=== PATIENT | female | born 1990 | race Caucasian/White ===

== ENCOUNTER 2016-06-25 12:52 | Emergency (ER) | payer OTHER, MEDICAID | END 2016-06-25 17:38 | disposition home or self-care (01) | DX: M79.604 Pain in right leg (principal); Z98.890 Other specified postprocedural states; M79.7 Fibromyalgia ==

== ENCOUNTER 2016-11-02 16:25 | Emergency (ER) | payer MEDICAID ==
--- NOTE | 2016-11-02 16:36 | ED Physician Documentation ---
PD HPI URI - Stated complaint Stated Complaint: SOA - Chief complaint Chief Complaint: Resp - History obtained from History obtained from: Patient - History of Present Illness Timing - onset: How many weeks ago (2) Timing duration: Weeks (she has had cough for 2 weeks, originally URI and cough and then to cough and was improving quite a bit, but now with marked cough productive of sputum, feverish, and also having 2 days of right lower thoracic pain in band around from back to lower ribs without rash nor sores, but does have marked tenderness with cough, touch (even my shirt rubbing hurts there).) Timing details: Gradual onset, Still present Associated symptoms: Fever, Chills, Productive cough, Chest pain, Dyspnea. No: NVD, Bilateral edema Contributing factors: No: Sick contact, Travel, Immunocompromised Similar symptoms before: Has not had sx before Recently seen: Not recently seen Review of Systems Constitutional: reports: Fever (subjective last night), Chills, Myalgias Nose: denies: Rhinorrhea / runny nose, Congestion Throat: denies: Sore throat Cardiac: reports: Chest pain / pressure (right lower ribs in band around to spine/back) Respiratory: reports: Dyspnea, Cough GI: denies: Nausea, Vomiting, Diarrhea Skin: denies: Rash, Lesions Neurologic: denies: Focal weakness, Numbness PD PAST MEDICAL HISTORY - Past Medical History Past Medical History: No Cardiovascular: Murmur Respiratory: None Neuro: None Endocrine/Autoimmune: None GI: None FAMILY AND CONSUMER SCIENCES TEACHER: None, Miscarriage(s) : None HEENT: None Psych: None Musculoskeletal: Fibromyalgia Derm: None - Past Surgical History Past Surgical History: Yes Derm: Skin cancer surgery - Present Medications Home Medications: Ambulatory Orders Medication Instructions Recorded Confirmed Albuterol Sulfate [Proair Hfa 2 puffs IH QID #1 hfa.aer.ad 11/02/16 Inhaler] Amoxicillin 500 mg PO TID #20 capsule 11/02/16 Cetirizine [ZyrTEC] 10 mg PO ONCE 11/02/16 11/02/16 Dexamethasone [Decadron] 4 mg PO DAILY #5 tablet 11/02/16 Hydrocodone/Acetaminophen [[place] 1 each PO Q6H PRN #20 tablet 11/02/16 5-325 Tablet] Naproxen 375 mg PO BID #20 tablet 11/02/16 Valacyclovir HCl [Valtrex] 1,000 mg PO TID #15 tablet 11/02/16 guaiFENesin [Mucinex] 600 mg PO BID 11/02/16 11/02/16 - Allergies Allergies/Adverse Reactions: Allergies Allergy/AdvReac Type Severity Reaction Status Date / Time adhesive Allergy Hives Verified 11/02/16 16:32 latex Allergy Hives Verified 11/02/16 16:32 - Social History Does the pt smoke?: No Smoking Status: Never smoker Does the pt drink ETOH?: No Does the pt have substance abuse?: No - Immunizations Immunizations are current?: Yes Immunizations: TDAP >10years/unknown - POLST Patient has POLST: No PD ED PE NORMAL - Vitals Vital signs reviewed: Yes - General General: Alert and oriented X 3, Well developed/nourished, Other (appears in pain with deep breathing and cough, and with movement for right lower chestwall. Intermittent cough with congested sounds and sputum. ) - HEENT HEENT: Pharynx benign - Neck Neck: Supple, no meningeal sign, No adenopathy - Cardiac Cardiac: RRR, No murmur - Respiratory Respiratory: Clear bilaterally, Other (chest wall tender to light touch and palpation from around back about T6-7 area laterally in band around to lower ribs area. Abdomen not tender. No rash nor sores. ) - Abdomen Abdomen: Soft, Non tender Results - Vitals Vitals: Vital Signs - 24 hr 11/02/16 11/02/16 16:29 17:59 Temperature 37.0 C Heart Rate 73 77 Respiratory 20 18 Rate Blood Pressure 139/91 H 129/82 H O2 Saturation 98 98 Oxygen O2 Source Room air - Rads (name of study) chest Radiology: Prelim report reviewed (no infiltrates), EMP read contemporaneously ( normal) PD MEDICAL DECISION MAKING - ED course Complexity details: reviewed results, considered differential (extended course of cough, was improving and now with purulent sputum, fevers - seems potential bacterial trasnformation. She also had considerable pain right lower thoracic area in band from spine around to front lower ribs area, with marked sensitivity to touch of skin. No rash nor sores. However, sounds like early shingles as well. Discussed this with her. ), d/w patient Departure - Departure Disposition: 01 Home, Self Care Clinical Impression: Acute chest wall pain Bronchitis, acute Qualifiers: Bronchitis organism: unspecified organism Qualified Code(s): J20.9 - Acute bronchitis, unspecified Condition: Stable Record reviewed to determine appropriate education?: Yes Instructions: ED Upper Resp Infec Abx Tx, ED Chest Pain Atypical Unkn Cause Follow-Up: Oh,ARMEN Stapleton [Primary Care Provider] - Prescriptions: Amoxicillin 500 mg PO TID #20 capsule Dexamethasone [Decadron] 4 mg PO DAILY #5 tablet Naproxen 375 mg PO BID #20 tablet Hydrocodone/Acetaminophen [Ismay 5-325 Tablet] 1 each PO Q6H PRN #20 tablet PRN Reason: Pain Albuterol Sulfate [Proair Hfa Inhaler] 2 puffs IH QID #1 hfa.aer.ad Valacyclovir HCl [Valtrex] 1,000 mg PO TID #15 tablet Comments: Drink lots of fluids. Naproxen twice daily for pain and add hydrocodone for pain as needed (can help with cough as well). Albuterol inhaler 2 puffs 4 times daily to help with cough and breathing. Amoxicillin as directed for the bronchitis. If you develop some rash to the right chest/back, then start the valacyclovir as it has the feeling that it might be early shingles. Recheck with PMD if not improved over the next few days. Forms: Activity restrictions Discharge Date/Time: 11/02/16 18:10
[2016-11-02] MEDS ORDERED: ACETAMINOPHEN 325 MG TABLET PO STA (16:53)
[2016-11-02] MEDS ORDERED: DEXAMETHASONE 10 MG/ML VIAL PO STA (16:53)
[2016-11-02] MEDS ORDERED: BENZONATATE 100 MG CAPSULE PO STA (16:53)
[2016-11-02] MEDS ORDERED: BENZONATATE 100 MG CAPSULE PO ONE (16:55)
[2016-11-02] MEDS ORDERED: ACETAMINOPHEN 325 MG TABLET PO ONE (16:55)
[2016-11-02] MEDS ORDERED: DEXAMETHASONE 10 MG/ML VIAL ONE (16:55)
--- NOTE | 2016-11-02 17:22 | XRAY Preliminary Report ---
Exam: XR Chest 2 View PA/LAT IMPRESSION: Negative chest. [facility] SITE ID: [id number]
--- NOTE | 2016-11-02 17:25 | XRAY Report ---
EXAM: CHEST RADIOGRAPHY EXAM DATE: 11/02/2016 05:08 PM. CLINICAL HISTORY: Cough for 2 weeks; right chest pain. COMPARISON: None. TECHNIQUE: 2 views. FINDINGS: Lungs/Pleura: No focal opacities evident. No pleural effusion. No pneumothorax. Normal volumes. Mediastinum: Heart and mediastinal contours are unremarkable. Other: None. IMPRESSION: Negative chest. [facility] Referring Provider Line: [phone] SITE ID: [id number]
[2016-11-02 18:00] VITALS: BP 129/82
== END 2016-11-02 18:10 | disposition home or self-care (01) ==
LOC: ED 16:25
DX: J20.9 Acute bronchitis, unspecified (principal); R07.89 Other chest pain; R06.00 Dyspnea, unspecified
CPT/HCPCS: 71020; 99283; A9270

== ENCOUNTER 2017-03-14 08:37 | Emergency (ER) | payer MEDICAID ==
[2017-03-14] MEDS ORDERED: SODIUM CHLORIDE 0.9% 1,000 ML IV ONE (09:13)
--- NOTE | 2017-03-14 09:15 | ED Physician Documentation ---
History of Present Illness - Stated complaint Stated Complaint: FEMALE - Chief complaint Chief Complaint: General - Additonal information Additional information: hx from pt to ER with brown urine and dysuria kindey pain also thinks she is dehydrated - she is drinking plenty but not urinating much and she feels weak no fever chill cough soa vomiting clear liquid no BM no bloody BM LMP 1 wk ago, no vag dc, denies any chance STD Review of Systems Constitutional: denies: Fever, Chills Cardiac: denies: Chest pain / pressure Respiratory: denies: Dyspnea, Cough GI: reports: Nausea. denies: Abdominal Pain, Diarrhea, Hematemesis, Bloody / black stool : reports: Dysuria, LMP (1 wk ago). denies: Discharge, Now EGA Musculoskeletal: reports: Back pain Immunocompromised: denies: Immunocompromised PD PAST MEDICAL HISTORY - Past Medical History Past Medical History: Yes Cardiovascular: Murmur Respiratory: None Neuro: None Endocrine/Autoimmune: None GI: None ORGANISATIONAL PSYCHOLOGIST: Miscarriage(s) : None HEENT: None Psych: None Musculoskeletal: Fibromyalgia Derm: None - Past Surgical History Past Surgical History: No Derm: Skin cancer surgery - Present Medications Home Medications: Ambulatory Orders Medication Instructions Recorded Confirmed Albuterol Sulfate [Proair Hfa 2 puffs IH QID #1 hfa.aer.ad 11/02/16 Inhaler] Amoxicillin 500 mg PO TID #20 capsule 11/02/16 Cetirizine [ZyrTEC] 10 mg PO ONCE 11/02/16 11/02/16 Dexamethasone [Decadron] 4 mg PO DAILY #5 tablet 11/02/16 Hydrocodone/Acetaminophen [[place] 1 each PO Q6H PRN #20 tablet 11/02/16 5-325 Tablet] Naproxen 375 mg PO BID #20 tablet 11/02/16 Valacyclovir HCl [Valtrex] 1,000 mg PO TID #15 tablet 11/02/16 guaiFENesin [Mucinex] 600 mg PO BID 11/02/16 11/02/16 Cephalexin [Keflex] 500 mg PO Q6H #28 capsule 03/14/17 Phenazopyridine [Pyridium] 100 mg PO Q8H PRN #9 tablet 03/14/17 - Allergies Allergies/Adverse Reactions: Allergies Allergy/AdvReac Type Severity Reaction Status Date / Time adhesive Allergy Hives Verified 11/02/16 16:32 latex Allergy Hives Verified 11/02/16 16:32 - Social History Does the pt smoke?: No Smoking Status: Never smoker Does the pt drink ETOH?: Yes Does the pt have substance abuse?: No - Immunizations Immunizations are current?: No Immunizations: TDAP >10years/unknown - POLST Patient has POLST: No PD ED PE NORMAL - Vitals Vital signs reviewed: Yes - General General: Alert and oriented X 3 - HEENT HEENT: PERRL - Neck Neck: Supple, no meningeal sign - Cardiac Cardiac: RRR - Respiratory Respiratory: No respiratory distress, Clear bilaterally - Abdomen Abdomen: Soft, Non tender - Back Back: No CVA TTP - Derm Derm: Normal color - Neuro Neuro: Alert and oriented X 3 Results - Vitals Vitals: Vital Signs - 24 hr 03/14/17 08:46 Temperature 36.6 C Heart Rate 83 Respiratory 16 Rate Blood Pressure 119/78 O2 Saturation 99 Oxygen O2 Source Room air - Labs Labs: Laboratory Tests 03/14/17 03/14/17 03/14/17 09:00 09:00 09:25 WBC 7.9 RBC 4.54 Hgb 12.8 Hct 38.6 MCV 85.1 MCH 28.3 MCHC 33.2 RDW 15.2 H Plt Count 334 MPV 7.2 L Neut # 6.0 Lymph # 1.3 L [place] # 0.5 Eos # 0.1 Baso # 0.1 Absolute Nucleated RBC 0.00 Nucleated RBCs 0.0 Sodium Potassium Chloride Carbon Dioxide Anion Gap BUN Creatinine Estimated GFR (MDRD) Glucose Calcium Urine Color COLORLESS Urine Clarity HAZY Urine pH 6.0 Ur Specific [place] <=1.005 <=1.005 Urine Protein NEGATIVE Urine Glucose (UA) NEGATIVE Urine Ketones NEGATIVE Urine Occult Blood MODERATE H Urine Nitrite NEGATIVE Urine Bilirubin NEGATIVE Urine Urobilinogen 0.2 (NORMAL) Ur Leukocyte Esterase TRACE H Urine RBC 0-5 Urine WBC >25 H Ur Squamous Epith Cells MOD Squamous H Urine Bacteria Few Ur Microscopic Review INDICATED Urine Culture Comments NOT INDICATED Urine HCG, Qual NEGATIVE 03/14/17 09:25 WBC RBC Hgb Hct MCV MCH MCHC RDW Plt Count MPV Neut # Lymph # [place] # Eos # Baso # Absolute Nucleated RBC Nucleated RBCs Sodium 138 Potassium 4.5 Chloride 104 Carbon Dioxide 27 Anion Gap 7.0 BUN 10 Creatinine 0.7 Estimated GFR (MDRD) 100 Glucose 93 Calcium 9.9 Urine Color Urine Clarity Urine pH Ur Specific [place] Urine Protein Urine Glucose (UA) Urine Ketones Urine Occult Blood Urine Nitrite Urine Bilirubin Urine Urobilinogen Ur Leukocyte Esterase Urine RBC Urine WBC Ur Squamous Epith Cells Urine Bacteria Ur Microscopic Review Urine Culture Comments Urine HCG, Qual PD MEDICAL DECISION MAKING - ED course ED course: given IVF for dehydration lytes fine no anemic not a good clean catch urine unfortunately but + WBC and some bacteria and pt with UTI sx so will tx, no CVA TTP but complains of flank pain so will rx 7 days not 3 Departure - Departure Disposition: Home, Self Care Clinical Impression: Pyelonephritis Condition: Good Instructions: ED Kidney Infec Female Follow-Up: ELICEO CALLE ND [Primary Care Provider] - (to recheck your urine after completing antibiotics) Prescriptions: Cephalexin [Keflex] 500 mg PO Q6H #28 capsule Phenazopyridine [Pyridium] 100 mg PO Q8H PRN #9 tablet PRN Reason: painful urination Comments: Your electrolytes are fine and you are not anemic today The urine was not a great clean catch but it does look like you have a urine infection - a culture will be run to confirm Since you are symptomatic, I recommend starting antibiotic treatment Drink plenty of fluids Follow up with your PMD for a recheck after completing antibiotics. Return if worse Forms: Activity restrictions
[2017-03-14 09:36] LABS: BASOPHILS # (AUTO) 0.1 10^3/uL (0.0-0.1); BASOPHILS % (AUTO) 0.7 %; EOSINOPHILS # (AUTO) 0.1 10^3/uL (0.0-0.7); EOSINOPHILS % (AUTO) 0.8 %; HCT - HEMATOCRIT 38.6 % (37.0-47.0); HGB - HEMOGLOBIN 12.8 g/dL (12.0-16.0); LYMPHOCYTES # (AUTO) 1.3 10^3/uL (1.5-3.5); LYMPHOCYTES % (AUTO) 16.4 %; MEAN CORPUSCULAR HEMOGLOBIN 28.3 pg (27.0-31.0); MEAN CORPUSCULAR HGB CONC 33.2 g/dL (32.0-36.0); MEAN CORPUSCULAR VOLUME 85.1 fL (81.0-99.0); MEAN PLATELET VOLUME 7.2 fL (7.9-10.8); MONOCYTES # (AUTO) 0.5 10^3/uL (0.0-1.0); MONOCYTES % (AUTO) 6.4 %; NEUTROPHILS % (AUTO) 75.7 %; RED BLOOD COUNT 4.54 10^6/uL (4.20-5.40); RED CELL DISTRIBUTION WIDTH 15.2 % (12.0-15.0); UNCORRECTED WHITE BLOOD COUNT 7.9 x10^3/uL; WHITE BLOOD COUNT 7.9 x10^3/uL (4.8-10.8)
[2017-03-14 09:43] LABS: CALCIUM 9.9 mg/dL (8.5-10.3); CREATININE 0.7 mg/dL (0.4-1.0); POTASSIUM 4.5 mmol/L (3.5-5.0)
[2017-03-14 09:48] LABS: BILIRUBIN,URINE NEGATIVE (NEGATIVE)
[2017-03-14 09:53] LABS: HCG UR QUAL NEGATIVE; UA w/ MICROSCOPIC CHARGE YES
[2017-03-14 10:25] LABS: UR CULTURE IF IND NOT INDICATED; WBC,URINE >25 /HPF (0-5)
[2017-03-14 12:39] VITALS: BP 120/72
== END 2017-03-14 12:38 | disposition home or self-care (01) ==
LOC: ED 08:37
DX: E86.0 Dehydration (principal); N12 Tubulo-interstitial nephritis, not specified as acute or chronic; M79.7 Fibromyalgia; Z85.828 Personal history of other malignant neoplasm of skin
CPT/HCPCS: 36415; 80048; 81001; 81003; 81025; 85025; 87086; 99283